=== PATIENT | male | born 1980 | race Two or more races ===

== ENCOUNTER 2016-09-01 14:09 | Emergency (ER) | payer BC ==
[~2016-09-01] VITALS: Ht 180.3 cm; Wt 117.0 kg
--- NOTE | 2016-09-01 14:18 | NUR ---
CALLED PATIENT TO TRIAGE X 3 TIMES, NO RESPOND. PATIENT IS NOT IN ED WAITING ROOM. UNABLE TO TRIAGE. WILL TRY AGAIN LATER.
[2016-09-01 14:40] VITALS: BP 146/92
== END 2016-09-01 16:22 | disposition home or self-care (01) ==
LOC: ER 14:12
DX: J40 Bronchitis, not specified as acute or chronic (principal); R51 Headache; I10 Essential (primary) hypertension; F17.200 Nicotine dependence, unspecified, uncomplicated; Z88.6 Allergy status to analgesic agent; Z90.49 Acquired absence of other specified parts of digestive tract
CPT/HCPCS: A4606; Z7502; Z7610

== ENCOUNTER 2016-10-06 23:03 | Emergency (ER) | payer BC ==
[~2016-10-06] VITALS: Ht 177.8 cm; Wt 111.1 kg
--- NOTE | 2016-10-06 23:25 | NUR ---
TO BED 9 A 36 YO MALE BIBSELF AND REPORTS "FEVER/BODYACHES SINCE YESTERDAY." AAOX4, AMBULATORY WITH STEADY GAIT, TEMP PER [place] IS 99.2F. NAD NOTED. COMFORT MEASURES RENDERED. AWAITING FOR ER MD ROBLEDO.
--- NOTE | 2016-10-06 23:30 | NUR ---
SUZY OLIVIER AT BEDSIDE FOR EVAL.
[2016-10-06] MEDS ORDERED: MAG HYDROX/AL HYDROX/SIMETH 30 ML UDC ONE (23:45)
[2016-10-06] MEDS ORDERED: ACETAMINOPHEN ES 500 MG TABLET ONE (23:45)
[2016-10-06] MEDS ORDERED: FAMOTIDINE (20 MG) 20 MG TABLET ONE (23:46)
[2016-10-06] MEDS ORDERED: PENICILLIN G BENZATHINE 2.4 MMU/4 ML ML IM ONE (23:46)
[2016-10-07] MEDS ORDERED: ACETAMINOPHEN ES 500 MG TABLET PO ONE
[2016-10-07] MEDS ORDERED: FAMOTIDINE (20 MG) 20 MG TABLET PO ONE
[2016-10-07] MEDS ORDERED: MAG HYDROX/AL HYDROX/SIMETH 30 ML UDC PO ONE
[2016-10-07] MEDS ORDERED: PENICILLIN G BENZATHINE 2.4 MMU/4 ML ML IM ONE
--- NOTE | 2016-10-07 00:15 | NUR ---
wasterd penicillin g per Pa Prusha as patient is already taking amoxicillin for the strep throat.
[2016-10-07] MEDS ORDERED: diphenhydrAMINE HCL 25 MG CAPSULE ONE (00:16)
--- NOTE | 2016-10-07 00:19 | NUR ---
DPatient discharged to home in stable condition. Written and verbal after care instructions given. Patient verbalizes understanding of instruction. Patient is ambulatory with steady gait. Instructed not to drive and he said, his sister is coming to pick him up. No further complaints.
[2016-10-07 00:21] VITALS: BP 145/87
[2016-10-07] MEDS ORDERED: diphenhydrAMINE HCL 25 MG CAPSULE PO ONE (00:30)
== END 2016-10-07 00:21 | disposition home or self-care (01) ==
LOC: ER 23:05
DX: J02.0 Streptococcal pharyngitis (principal); K29.70 Gastritis, unspecified, without bleeding; F17.200 Nicotine dependence, unspecified, uncomplicated; I10 Essential (primary) hypertension; Z98.890 Other specified postprocedural states; Z88.5 Allergy status to narcotic agent
CPT/HCPCS: A4606; J0558; Q0163; Z7610